=== PATIENT | male | born 1945 | race Caucasian/White ===

== ENCOUNTER 2021-10-22 04:14 | Day surgery (SDC) | payer BC, OTHER ==
[2021-10-21 19:42] VITALS: BMI 25.1
[2021-10-22] MEDS ORDERED: LIDOCAINE HCL 1%, 10 MG/ML (20ML VIAL) ONE (12:33)
[2021-10-22] MEDS ORDERED: DEXMEDETOMIDINE HCL 200 MCG/2 ML IVPB ONE ×2 (12:48→14:51)
[2021-10-22] MEDS ORDERED: ACETAMINOPHEN INJECTION 100 ML IVPB ONE ×2 (12:48→14:51)
[2021-10-22] MEDS ORDERED: SUCCINYLCHOLINE CHLORIDE 200 MG/10 ML SYRINGE ONE (13:17)
[2021-10-22] MEDS ORDERED: PROPOFOL 20 ML ONE (13:18)
[2021-10-22] MEDS ORDERED: ceFAZolin SODIUM 1 GM VIAL ONE (13:18)
[2021-10-22] MEDS ORDERED: LIDOCAINE HCL/PF 2% SDV 5ML VIAL ONE (13:18)
[2021-10-22] MEDS ORDERED: ceFAZolin SODIUM 1 GM VIAL IVPB ONE (13:22)
[2021-10-22] MEDS ORDERED: BUPIVACAINE HCL/PF 0.5% (5MG/ML) 10 ML VIAL IJ ONE ×2 (13:25)
[2021-10-22] MEDS ORDERED: LIDOCAINE HCL 1%, 10 MG/ML (20ML VIAL) INF ONE ×2 (13:25)
[2021-10-22 17:07] VITALS: BP 105/68; PULSE 73; TEMP 97.3
== END 2021-10-22 17:23 | disposition home or self-care (01) ==
LOC: JASU-SURG 04:14
PROVIDERS: ATTEND Surgery Vascular Surgery
PROC: 0YU60JZ Supplement Left Inguinal Region with Synthetic Substitute, Open Approach (ICD-10-PCS; principal; 2021-10-22 12:00)
DX: K40.90 Unilateral inguinal hernia, without obstruction or gangrene, not specified as recurrent (principal)
CPT/HCPCS: 94760

== ENCOUNTER 2021-10-27 19:17 | Observation (INO) | payer BC ==
[2021-10-27 19:34] VITALS: BMI 26.0
[2021-10-27 20:37] LABS: INR 1.46 (0.83-1.09); PROTHROMBIN TIME (PATIENT) 16.9 SEC (9.7-13.0)
[2021-10-27 20:40] LABS: ACTIVATED PTT 35.8 SECONDS (25.2-36.5)
[2021-10-27 20:47] LABS: CALCIUM 8.6 mg/dL (8.5-10.1)
[2021-10-27 20:48] LABS: ALBUMIN 3.6 g/dl (3.4-5.0); BLOOD UREA NITROGEN 32.9 mg/dL (7-18)
[2021-10-27 20:51] LABS: CREATININE 1.4 mg/dL (0.55-1.3)
[2021-10-27 20:52] LABS: BILIRUBIN,TOTAL 1.2 mg/dL (0.2-1); TOT PROT 7.5 g/dl (6.4-8.2)
[2021-10-27 20:54] LABS: BASO % 0.5 % (0-2.0); EOS % 2.2 % (0-4.5); HEMOGLOBIN 15.5 GM/dL (11.7-16.9); LYMPH % 23.6 % (8-40); MCH 30.8 pg (25.7-33.7); MCHC 34.4 g/dl (32.0-35.9); MEAN CELL VOLUME 89.3 fl (80-96); MEAN PLT VOLUME 7.6 fl (7.5-11.1); NEUT % 67.7 % (42.8-82.8); PLATELET COUNT 260 10^3/uL (134-434); RBC 5.03 M/mm3 (4.00-5.60); RDW 15.7 % (11.9-15.9); WHITE BLOOD COUNT 8.8 K/mm3 (4.0-10.0)
[2021-10-28] MEDS ORDERED: ACETAMINOPHEN WITH CODEINE 300MG/30MG TABLET PO PRN (03:34)
[2021-10-28 03:44] LABS: EPI CELLS 1 /uL (0-25.1); HYALINE CASTS 0 /uL (0-3.1); URINE APPEARANCE CLEAR; URINE BACTERIA 9 /uL (0-1359); URINE BILIRUBIN NEGATIVE (NEGATIVE); URINE COLOR YELLOW; URINE GLUCOSE (UA) NEGATIVE (NEGATIVE); URINE KETONE NEGATIVE (NEGATIVE); URINE LEUK ESTERASE NEGATIVE (NEGATIVE); URINE NITRITE NEGATIVE (NEGATIVE); URINE PROTEIN 1+ (NEGATIVE); URINE RBC 13 /uL (0-23.9); URINE UROBILINOGEN 0.2 mg/dL (0.2-1.0); URINE WBC 1 /uL (0-25.8)
[2021-10-28] MEDS: SODIUM CHLORIDE 1,000 ML IV SCH ×2 (07:45→21:41)
[2021-10-28] MEDS: LEVOTHYROXINE NA 100 MCG TABLET (FP) PO SCH (08:55)
[2021-10-28] MEDS ORDERED: DIGOXIN 0.125 MG TABLET ONE (08:58)
[2021-10-28] MEDS: VERAPAMIL HCL 180 MG E.R. TABLET PO SCH (09:07)
[2021-10-28] MEDS: DIGOXIN 0.125 MG TABLET PO SCH (09:07)
[2021-10-28] MEDS: WARFARIN NA 2 MG TABLET PO SCH (18:23)
[2021-10-28] MEDS: ATORVASTATIN CA 10 MG TABLET (FP) PO SCH (23:00)
[2021-10-28] MEDS ORDERED: ATORVASTATIN CA 10 MG TABLET (FP) ONE (23:30)
[2021-10-29] MEDS: LEVOTHYROXINE NA 100 MCG TABLET (FP) PO SCH (06:26)
[2021-10-29 07:01] LABS: BASO % 0.7 % (0-2.0); EOS % 1.5 % (0-4.5); HEMATOCRIT 46.7 % (35.4-49); HEMOGLOBIN 15.7 GM/dL (11.7-16.9); LYMPH % 10.4 % (8-40); MCHC 33.6 g/dl (32.0-35.9); MEAN CELL VOLUME 89.1 fl (80-96); MEAN PLT VOLUME 7.6 fl (7.5-11.1); MONO % 6.5 % (3.8-10.2); NEUT % 80.9 % (42.8-82.8); PLATELET COUNT 271 10^3/uL (134-434); RBC 5.24 M/mm3 (4.00-5.60); RDW 15.5 % (11.9-15.9); WHITE BLOOD COUNT 13.7 K/mm3 (4.0-10.0)
[2021-10-29 07:05] LABS: ALBUMIN 3.4 g/dl (3.4-5.0); BLOOD UREA NITROGEN 22.2 mg/dL (7-18); CALCIUM 8.7 mg/dL (8.5-10.1); MAGNESIUM 1.9 mg/dL (1.8-2.4)
[2021-10-29 07:08] LABS: CREATININE 1.1 mg/dL (0.55-1.3)
[2021-10-29 07:10] LABS: BILIRUBIN,TOTAL 2.5 mg/dL (0.2-1); TOT PROT 6.9 g/dl (6.4-8.2)
[2021-10-29 08:39] LABS: INR 1.39 (0.83-1.09)
[2021-10-29] MEDS: VERAPAMIL HCL 180 MG E.R. TABLET PO SCH (10:13)
[2021-10-29] MEDS: HYDROCHLOROTHIAZIDE 12.5 MG CAPSULE (FP) PO SCH (10:13)
[2021-10-29] MEDS: VALSARTAN 160 MG TABLET PO SCH (10:13)
[2021-10-29] MEDS: DIGOXIN 0.125 MG TABLET PO SCH (10:17)
[2021-10-29] MEDS: WARFARIN NA 2 MG TABLET PO SCH (18:54)
[2021-10-29] MEDS: ATORVASTATIN CA 10 MG TABLET (FP) PO SCH (21:10)
[2021-10-29] MEDS ORDERED: ATORVASTATIN CA 10 MG TABLET (FP) PO SCH (21:50)
[2021-10-29] MEDS: SODIUM CHLORIDE 1,000 ML IV SCH (21:51)
[2021-10-29] MEDS ORDERED: ATORVASTATIN CA 40 MG TABLET (FP) PO SCH (22:00)
[2021-10-29] MEDS: ENOXAPARIN NA (PORCINE) 80 MG/0.8 ML DISP.SYRIN SQ SCH (22:03)
[2021-10-30] MEDS: ACETAMINOPHEN 1000 MG/100 ML BAG IVPB PRN ×2 (03:13→09:52)
[2021-10-30] MEDS: ACETAMINOPHEN WITH CODEINE 300MG/30MG TABLET PO PRN ×4 (05:52→20:28)
[2021-10-30] MEDS: LEVOTHYROXINE NA 100 MCG TABLET (FP) PO SCH (06:24)
[2021-10-30 08:28] LABS: BASO % 0.5 % (0-2.0); EOS % 1.3 % (0-4.5); HEMATOCRIT 43.8 % (35.4-49); HEMOGLOBIN 14.6 GM/dL (11.7-16.9); LYMPH % 9.5 % (8-40); MCH 29.7 pg (25.7-33.7); MCHC 33.4 g/dl (32.0-35.9); MEAN CELL VOLUME 89.1 fl (80-96); MEAN PLT VOLUME 7.5 fl (7.5-11.1); MONO % 6.2 % (3.8-10.2); NEUT % 82.5 % (42.8-82.8); PLATELET COUNT 244 10^3/uL (134-434); RBC 4.91 M/mm3 (4.00-5.60); RDW 15.3 % (11.9-15.9); WHITE BLOOD COUNT 17.4 K/mm3 (4.0-10.0)
[2021-10-30 08:43] LABS: CALCIUM 8.4 mg/dL (8.5-10.1); MAGNESIUM 1.7 mg/dL (1.8-2.4)
[2021-10-30 08:44] LABS: INR 1.66 (0.83-1.09); PROTHROMBIN TIME (PATIENT) 19.2 SEC (9.7-13.0)
[2021-10-30 08:46] LABS: BLOOD UREA NITROGEN 23.9 mg/dL (7-18)
[2021-10-30 08:47] LABS: CREATININE 1.4 mg/dL (0.55-1.3)
[2021-10-30 08:48] LABS: TOT PROT 6.6 g/dl (6.4-8.2)
[2021-10-30] MEDS: DIGOXIN 0.125 MG TABLET PO SCH (10:20)
[2021-10-30] MEDS: VALSARTAN 160 MG TABLET PO SCH (10:20)
[2021-10-30] MEDS: VERAPAMIL HCL 180 MG E.R. TABLET PO SCH (10:20)
[2021-10-30] MEDS: HYDROCHLOROTHIAZIDE 12.5 MG CAPSULE (FP) PO SCH (10:20)
[2021-10-30] MEDS: ENOXAPARIN NA (PORCINE) 80 MG/0.8 ML DISP.SYRIN SQ SCH (10:21)
[2021-10-30] MEDS ORDERED: HEPARIN NA (PORCINE) 5,000 UNITS/ML 1ML VIAL IVPUSH PRN ×2 (16:17)
[2021-10-30] MEDS ORDERED: HEPARIN SOD,PORK IN 0.45% NACL 25,000 UNITS/500 ML INFUS.BAG IVPB SCH (16:30)
[2021-10-30] MEDS ORDERED: ACETYLCYSTEINE 20% 200MG/ML 30 ML VIAL *FOR ORAL / INH USE ONLY NEB ONE ×2 (16:44)
[2021-10-30] MEDS ORDERED: SODIUM CHLORIDE 1,000 ML IV SCH (16:50)
[2021-10-30] MEDS ORDERED: ALBUTEROL SO4 0.083% IH SOL 2.5 MG/3 ML VIAL.NEB. NEB ONE (17:11)
[2021-10-30] MEDS ORDERED: POVIDONE-IODINE OINTMENT 10% - 28.4 GM TUBE ONE (17:50)
[2021-10-30] MEDS ORDERED: LIDOCAINE HCL 1%, 10 MG/ML (20ML VIAL) ONE ×2 (17:50→17:51)
[2021-10-30] MEDS ORDERED: HEPARIN NA (PORCINE) 5,000 UNITS/ML 1ML VIAL ONE (17:50)
[2021-10-30] MEDS: WARFARIN NA 5 MG TABLET PO SCH ×2 (17:57→18:25)
[2021-10-30] MEDS ORDERED: WARFARIN NA 5 MG TABLET PO SCH (18:00)
[2021-10-30 21:45] VITALS: BP 133/68; PULSE 76; TEMP 99
== END 2021-10-30 22:11 | disposition short-term general hospital (02) ==
LOC: JER 19:17 → JERBED 22:08 → INTOOBSV 22:08 → J4W 10-29 03:15
PROVIDERS: ADMIT Hospitalist; ATTEND Internal Medicine
PROC: 3E0F7GC Introduction of Other Therapeutic Substance into Respiratory Tract, Via Natural or Artificial Opening (ICD-10-PCS; principal; 2021-10-27)
PROC: 3E033NZ Introduction of Analgesics, Hypnotics, Sedatives into Peripheral Vein, Percutaneous Approach (ICD-10-PCS; 2021-10-27)
PROC: 3E023GC Introduction of Other Therapeutic Substance into Muscle, Percutaneous Approach (ICD-10-PCS; 2021-10-27)
PROC: 3E033GC Introduction of Other Therapeutic Substance into Peripheral Vein, Percutaneous Approach (ICD-10-PCS; 2021-10-27)
PROC: 3E0337Z Introduction of Electrolytic and Water Balance Substance into Peripheral Vein, Percutaneous Approach (ICD-10-PCS; 2021-10-27)
DX: I25.10 Atherosclerotic heart disease of native coronary artery without angina pectoris (principal); I48.11 Longstanding persistent atrial fibrillation; M62.81 Muscle weakness (generalized); N17.9 Acute kidney failure, unspecified; R47.1 Dysarthria and anarthria; I25.2 Old myocardial infarction; R00.8 Other abnormalities of heart beat; I11.9 Hypertensive heart disease without heart failure; R01.1 Cardiac murmur, unspecified; R29.898 Other symptoms and signs involving the musculoskeletal system; Z86.73 Personal history of transient ischemic attack (TIA), and cerebral infarction without residual deficits; E03.9 Hypothyroidism, unspecified; E78.5 Hyperlipidemia, unspecified; D72.829 Elevated white blood cell count, unspecified; Z87.738 Personal history of other specified (corrected) congenital malformations of digestive system; Z88.0 Allergy status to penicillin; Z79.01 Long term (current) use of anticoagulants
CPT/HCPCS: 36415; 70450-TC; 70496-TC; 70498-TC; 70551-TC; 71045-TC-FY; 73706-TC-RT; 80053; 80061; 80162; 81003; 82962; 83036; 83735; 84484; 85025; 85610; 85730; 86850; 86900; 86901; 93005; 93010; 93925-TC; 94640; 96361; 96365; 96367; 96372; 96375; 97116-GP; 97162-GP; 99285-25; C9803; G0378; J1644; U0003; U0005